=== PATIENT | female | born 1990 | race Caucasian/White ===

== ENCOUNTER 2025-07-12 15:25 | Outpatient (AMB) | payer OTHER, SELFPAY ==
--- NOTE | 2025-07-12 15:45 | MHC.OFFVIS ---
Intake Visit Reasons: 2 month facial pain Allergies amoxicillin Allergy (Unknown, Verified 07/05/25 08:20) Unknown HPI Comments Details: This is a 34-year-old woman with a history of kidney stones, who comes in with one year history of tingling paresthesia in the right cheek area with some facial pain and right frontal headaches and sometimes trouble opening the right eye. The right eyeball feels weird when it is moved.? Her symptoms increase in the summer.?The numb tingling is less often. Sometimes, she'll get a right suboccipital pain and pain in the right ear.? She occasionally reports twitching in the right cheek.? Many years ago,? she had a root canal done in the right upper and lower jaw.? She denies any facial or head trauma. Getting daily headaches. [facility] Medical History (Updated 07/12/25 @ 15:52 by Antonio Rascon MD) Facial pain Sinusitis Review of Systems Const Details: Sleep:? Difficulty getting to sleepdenies.? Difficulty maintaining sleepdenies?.? Urge to move legsdenies.? Teeth grindingdenies.? Shouting or Kicking during sleepdenies.? Abnormal behavior during sleepdenies.? Excessive sleepdenies.? Snoringdenies.? Daytime sleepinessdenies. ???General/Constitutional:? Change in appetitedenies.? Chillsdenies.? Fatiguedenies.? Feverdenies.? Weight gaindenies.? Weight lossdenies. ???Ophthalmologic:? Blurred visiondenies.? Diminished visual acuitydenies. ???ENT:? Stuffinessdenies.? Decreased hearingdenies.? Dry mouthdenies.? Ear painadmits.? Nosebleeddenies.? Ringing in the earsdenies.? Sinus paindenies.? Sore throatdenies.? Swollen glandsdenies. ???Endocrine:? Cold intolerancedenies.? Excessive thirstdenies.? Frequent urinationdenies.? Heat intolerancedenies. ???Respiratory:? Shortness of breathdenies.? Chest paindenies.? Coughdenies. ???Breast:? Breast lumpdenies.? Nipple dischargedenies. ???Cardiovascular:? Chest pain at restdenies.? Chest pain with exertiondenies.? Claudicationdenies.? Dizzinessdenies.? Fluid accumulation in the legsdenies.? Irregular heartbeatdenies.? Palpitationsdenies. ???Gastrointestinal:? Abdominal paindenies.? Constipationdenies.? Diarrheadenies.? Difficulty swallowingdenies.? Heartburnadmits.? Nauseadenies.? Rectal bleedingdenies. ???Hematology:? Easy bruisingdenies.? Prolonged bleedingdenies. ???Genitourinary:? Frequent urinationdenies.? Urgencydenies.? Incontinencedenies.? Erectile Dysfunctiondenies. ???Musculoskeletal:? Neck paindenies.? Back paindenies.? Muscle achesdenies.? Painful jointsdenies.? Sciaticadenies.? Weaknessdenies. ???Podiatric:? Difficulty walkingdenies.? Foot numbnessdenies. ???Neurologic:? Difficulty swallowingdenies.? Balance difficultydenies.? Coordinationnormal.? Difficulty speakingdenies.? Dizzinessdenies.? Faintingdenies.? Gait abnormalitydenies.? Headacheadmits.? Loss of strengthdenies.? Loss of use of extremitydenies.? Low back paindenies.? Memory lossdenies.? Seizuresdenies.? Ticsdenies.? Tingling/Numbnessface.? Transient loss of visiondenies.? Tremordenies. ???Psychiatric:? Anxietydenies.? Auditory/visual hallucinationsdenies.? Delusionsdenies.? Depressed mooddenies.? Stressorsdenies.? Substance abusedenies.? Suicidal thoughtsdenies. Physical Exam Neuro Other: Neurological: Abnormal neurological findings:??slight developmental facial asymmetry and deviated bridge of the nose.?Mental Status:??alert and oriented X 3,?Normal attention, orientation, memory and affect.?Cranial Nerves:??Pupils are equal, round and reactive to light. Fundoscopy shows normal disc bilaterally. External occular muscles are intact. Visual jimenez are full, no ptosis. Face is symmetrical, no facial weakness or droop. Facial sensations are normal. Tongue protrudes in midline. Palate elevates symmetrically. Shoulder shrugging is normal..?Motor Examination:??Normal muscle tone, bulk and strength,?No atrophy or fasciculations,?No drift of the extended upper extremities,?Deep tendon reflexes are 2+?,?Plantars are flexor?.?Motor Strength:?Proximal Muscles (out of 5):5Distal Muscles (out of 5):5Neck Flexors (out of 5):5Neck Extensors (out of 5):5Deltoid (out of 5):5Biceps (out of 5):5Triceps (out of 5):5Serratus Anterior (out of 5):5Wrist Extensors (out of 5):5APB (out of 5):5Finger Spread (out of 5):5Ileopsoas (out of 5):5Quadriceps (out of 5):5Hamstrings (out of 5):5Tibialis Anterior (out of 5):5Peronei (out of 5):5EDB (out of 5):5Gastrocnemius (out of 5):5Straight Leg Raising:??90 degrees.?Sensory Exam:??Normal light touch, temperature, pinprick, vibration and joint-position sensations?,?Rhomberg sign is absent.?Coordination:??no ataxia,?no titubation,?ayjynp-dt-puuy, kkxt-fbxm-axtl test and rapid alternating movements were normal.?Gait Exam:??Within normal limits.?Cerebellar Signs:??Rwbysq-vo-rond and ocsm-jj-oyqb is normal,?no dysdiadochokinesia?.?Extrapyramidal System:??No tremor, rigidity with normal facial expressions,?No bradykinesia, no bradyphrenia. Normal arm swing and posture. No propulsion or retropulsion.?Speech:??Normal,?no dysphasia or dysarthria..? Mini Mental Status Exam: Level of Consciousness:??Alert.?Orientation:??Knows correct year, month, date, day and season,?Knows correct city, county and state. Knows correct location and floor.?Registration:??Able to register 3 objects.?Attention:??Serial 7's performed accurately.?Recall:??Able to recall 3 out of 3 objects.?Language:??Normal spontaneous speech, fluency, repetition,naming, comprehension, reading and writing.?Total Score:??30/30.? General Examination: GENERAL APPEARANCE:??normal,?in no acute distress.?HEAD:??normocephalic,?atraumatic.?EYES:??sclera non-icteric,?conjunctiva clear.?EARS:??auditory canal clear,?tympanic membrane intact, clear.?NOSE:??no lesions.?ORAL CAVITY:??gums normal,?mucosa moist,?no lesions.?THROAT:??clear.?NECK/THYROID:??no cervical lymphadenopathy,?thyroid normal,?neck supple, full range of motion,?no carotid bruit.?SKIN:??no rashes,?no significant birthmarks.?HEART:??S1, S2 normal,?no murmurs.?LUNGS:??clear anteriorly and posteriorly.?CHEST:??no gross rib deformity,?clear to auscultation.?BACK:??normal exam of spine.?EXTREMITIES:??no edema.?PERIPHERAL PULSES:??normal.?PSYCH:??alert, oriented,?cognitive function intact,?cooperative with exam.? 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
--- OUTSIDE RECORDS SUMMARY | 2025-07-12 16:18 | XMS_ITS ---
Author Name [facility] Organization Unknown Care Team Organization Name Specialty Phone Email Start Date End Da zahraa [facility]ae[facility] 09/30/20222023
--- OUTSIDE RECORDS SUMMARY | 2025-07-12 16:18 | XMS_ITS | Clinical Summary ---
Author Organization [facility] Address [address] [place] [address] Phone Care Team Providers Care Drying Unit Felting Machine Operator Name Role Phone Donald Toth MD Primary Care Provider [phone] Allergies Active Allergy Reactions Criticality Noted Date Comments Amoxicillin 05/11/2025 Penicillins 05/11/2025 Medications mometasone (ELOCON) 0.1 % cream APPLY TO AFFECTED AREA TWICE A DAY ON THE FACE FOR 7 DAYS 45 g 1 4 Active camphor-methyl salicyl-menthoL (Salonpas) 3.1 %-10 %-6 % (large) adhesive patch,medicated Indications:Chr onic left shoulder pain Apply 1 patch topically 1 (one) time each day if needed (pain). Remove at bedtime. 30 patch 5 5 Active cetirizine (ZyrTEC) 10 mg tablet TAKE 1 TABLET BY MOUTH 1 TIME EACH DAY. 30 tablet 2 5 Active Encounters Date Type Department Care Team Description 06/07/2025 Lab Requisition [facility] - Main Lab [address] [place] [address] Fernando Burnette MD Calculus of kidney 05/11/2025 2:30 PM EDT Consult Orthopedic Surgery - [employer] [address] [place] [address] Yamilet Rivero PA Chronic left shoulder pain 04/28/2025 2:38 PM EDT - 04/28/2025 11:59 PM EDT Hospital Encounter [facility] Ultrasound [address] [place] [address] Calculus of kidney Discharge Disposition: Home or Self Care 04/13/2025 10:59 AM EDT - 04/13/2025 11:59 PM EDT Hospital Encounter [facility] Xray [address] [place] [id number] Chronic left shoulder pain Discharge Disposition: Home or Self Care 04/13/2025 10:30 AM EDT Office Visit Internal Medicine - [employer] [address] [place] [phone] Joaquín Arshad NP Right facial numbness (Primary Dx); Mold suspected exposure; Chronic left shoulder pain from Last 3 Months Surgical History Surgery Date Site/Laterality Comments OTHER SURGICAL HISTORY PROCEDURE: DENIES PREVIOUS SURGERY Medical History Medical History Date Comments GERD (gastroesophageal reflu x disease) 01/21/2018 DX:GERD (gastroesophageal re flux disease) Psoriasis 01/21/2018 DX:Psoriasis Family history of breast cancer 09/10/2016 DX:Family history of breast cancer; COMMENT: Overview: Mother breast cancer at 38- in remission. Paternal Grandmother Hx of abnormal cervical Pap smear 01/26/2015 DX:Hx of abnormal cervical Pap smear; COMMENT: Overview: 06/30/2017: negative for squamous intraepithelial malignancy. Negative HPV Pt had a Pap done 01/15/2015. Negative for squamous intraepithelial lesion and malignancy- abundant acute inflammatory cells are present. Scant cellularity. OncoFISH test result to follow. HPV: Positive HPV 16: negative HPV 18/45: Negative Negative 3q gain W* History of vitamin D deficiency 10/25/2014 DX:History of vitamin D deficiency History of nephrolithiasis DX:Hi story of nephrolithiasis Frequent urination at night 10/13/2018 DX:F requent urination at night Chronic constipation 01/18/2019 DX:Chronic constipation Family History Medical History Relation Name Comments Breast cancer Mother at age 38, in remission Other: ovarian cyst Mother Breast cancer Paternal Grandmother Relation Name Status Comments Father Alive Mother Alive Paternal Grandmother Social History Tobacco Use Types Packs/Day Years Used Date Smoking Tobacco: Never Smokeless Tobacco: Never Alcohol Use Standard Drinks/Week Comments No 0 (1 standard drink = 0.6 oz pur e alcohol) Housing Instability Answer Date Recorde d Are you worried that in the next 2 months you may not have stable housing? No 04/12/2025 Food Access & Nutrition Answer Date Rec orded Do you have access to a vari ety of food including fruits and vegetables? Yes 04/12/2025 Access to Healthcare Answer Date Record ed Within the last 3 months, ho w many times did you visit the emergency department for your medical care? 0 04/12/2025 Health Literacy Answer Date Recorded How often do you need to hav e someone help you when you read instructions, pamphlets, or other written material from your doctor or pharmacy? Never 04/12/2025 Caregiver: How often do you need to have someone help you when you read instructions, pamphlets, or other written material from your doctor or pharmacy? Not on file 04/12/2025 Financial Risk Answer Date Recorded How hard is it for you to pa y for the very basics like food, housing, medical care, and air conditioning / heating? Not very hard 04/12/2025 Transportation Answer Date Recorded Has the lack of transportati on kept you from meetings, work, or from getting things needed for daily living? No Has the lack of transportati on kept you from medical appointments or from getting medications? No 04/12/2025 Social Isolation Answer Date Recorded How often do you feel lonely or isolated from th ose around you? Never 04/12/2025 Food Risk Answer Date Recorded Within the past 12 months we worried whether our food would run out before we got money to buy more. Never true 04/12/2025 Within the past 12 months th e food we bought just didn't last and we didn't have money to get more. Never true 04/12/2025 Dependent Care Answer Date Recorded Do you need help finding or paying for care for your loved ones. For example, child abuse worker or elderly care for an older adult? No 04/12/2025 Education Answer Date Recorded Do you think completing more education or training, like finishing a GED, going to college, or learning a trade, would be helpful for you? No 04/12/2025 Employment and Income Answer Date Recor ded During the last four weeks, have you been actively looking for work? Yes 04/12/2025 Living Situation Answer Date Recorded What is your living situation? 0 04/12/2025 Comments Unknown Sex and Gender Information Value Date Recorded Sex Assigned at Not on file Legal Sex Female 8:34 PM EST Gender Identity Not on file Sexual Orientation Not on file Obstetrics History Last Filed Vital Signs Vital Sign Reading Time Taken Comments Blood Pressure 118/78 04/13/2025 10:21 AM EDT Pulse 79 04/13/2025 10:21 AM EDT Temperature 36.7 C (98 F) 04/13/2025 10:21 AM EDT Respiratory Rate - - Oxygen Saturation 99% 04/13/2025 10:21 AM EDT Inhaled Oxygen Concentration - - Weight 62.7 kg (138 lb 3.2 oz) 04/13/2025 10:21 AM EDT Height 165.1 cm (5' 5 ) 05/11/2025 2:27 PM EDT Body Mass Index 23 05/25/2024 3:26 PM EDT Plan of Treatment Upcoming Encounters Date Type Department Care Team (Late st Contact Info) Description 10/10/2025 11:15 AM EST Office Visit Internal Medicine - [employer] [address] [address] [place] [address] Joaquín Arshad, GABY [address] [facility] [address] [place] [address] Health Maintenance Due Date Last Done Comments Hepatitis A Vaccines (2 of 2 - 2-dose series) 08/27/2011 02/25/2011 Cervical Cancer Screening: Pap Smear 2013 HIV Screening 11/01/2022 Hepatitis C Screening 11/01/2022 COVID-19 Vaccine ( season) 2024 07/12/2021 Influenza Vaccine (#1) 2025 , 10/25/2014, 09/08/2013 Social Influencers of Health Screening 04/12/2026 04/12/2025 DTaP,Tdap,and Td Vaccines (8 - Td or Tdap) 03/12/2033 03/12/2023, 03/27/2005, 10/24/1996, Additional history exists HIB Vaccines Completed 10/24/1996, 12/1995, 04/29/1994, Additional history exists IPV Vaccines Completed 10/24/1996, 12/1995, 04/29/1994, Additional history exists MMR Vaccines Completed 10/24/1996, 01/31/1994 Hepatitis B Vaccines Completed 03/14/2002, 12/10/2001, 11/10/2001, Additional history exists Meningococcal ACWY Vaccine Aged Out 03/07/2009 N o longer eligible based on patient's age to complete this topic HPV Vaccines Completed 11/08/2010, 08/23, 03/07/2009 Depression Screening Completed 04/12/2025 Meningococcal B Vaccine Aged Out No l onger eligible based on patient's age to complete this topic Pneumococcal Vaccine: Pediatrics (0 to 5 Years) and At-Risk Patients (6 to 49 Years) Aged Out No longer eligible based on patient's age to complete this topic RSV Immunization Patients Under 20 months Aged Out No longer eligible based on patient's age to complete this topic Varicella Vaccines Aged Out No longer eligible based on patient's age to complete this topic Procedures Procedure Name Priority Date/Time Associated Diagnosis Comments PARATHYROID HORMONE INTACT Routine 06/07/2025 2:29 PM EDT [facility] US RETROPERITONEAL COMPLETE Routine 04/28/2025 2:56 PM EDT [facility] XR SHOULDER 2+ VIEWS LEFT Routine 04/13/2025 11:06 AM EDT Chronic left shoulder pain ALLERGEN, CLADOSPORIUM HERBARUM IGE Routine 04/13/2025 10:45 AM EDT Mold suspected exposure ALLERGEN MICROORGANISM, ALTERNARIA ALTERNATA IGE Routine 04/13/2025 10:45 AM EDT Mold suspected exposure ALLERGEN ASPERGILLUS FUMIGATUS IGE Routine 04/13/2025 10:45 AM EDT Mold suspected exposure from Last 3 Months Results * (ABNORMAL) Parathyroid hormone intact (06/07/2025 2:29 PM EDT) PTH 126.0(H) 18.5 - 88.0 pcg/mL LAB CHEMISTRY METHOD 06/07/2025 6:53 PM EDT [facility] Blood Venous blood specimen / Unknown 06/07/2025 2:29 PM EDT 06/07/2025 6:21 PM EDT us Fernando Burnette MD LAB BLOOD ORDERABLES Final Result [facility] [address] [place] [address], [place] [phone] * US Retroperitoneal Complete (04/28/2025 2:56 PM EDT) Anatomical Region Laterality Modality Body Ultrasound 04/28/2025 3:30 PM EDT Impressions 04/28/2025 3:32 PM EDT Multiple small echogenic foci in the right kidney suggesting nonobstructing calculi. No hydronephrosis. -------- FINAL REPORT -------- Dictated By: Benjy Vann Dictated Date: 04/28/2025 15:30 ET Assigned Physician: Benjy Vann Reviewed and Electronically Signed By: Benjy Vann Signed Date: 04/28/2025 15:32 ET Workstation ID: [id number] Transcribed By: Self Edit Transcribed Date: 04/28/2025 15:30 ET Narrative 04/28/2025 3:32 PM EDT PROCEDURE: Renal ultrasound. HISTORY: CALCULUS OF KIDNEY. TECHNIQUE: Grayscale, color Doppler, and spectral Doppler ultrasound of the kidneys. COMPARISON: CT 02/09/2019. FINDINGS: The right kidney measures 10.3 cm in length. The left kidney measures 10.3 cm in length. No hydronephrosis. There are multiple small echogenic foci in the right kidney suggesting nonobstructing calculi. Limited views of the urinary bladder are unremarkable. Both ureteral jets were visualized. Procedure Note Benjy Vann MD - 04/28/2025 PROCEDURE: Renal ultrasound. HISTORY: CALCULUS OF KIDNEY. TECHNIQUE: Grayscale, color Doppler, and spectral Doppler ultrasound ofthe kidneys. COMPARISON: CT 02/09/2019. FINDINGS: The right kidney measures 10.3 cm in length. The left kidney measures 10.3 cm in length. No hydronephrosis. There are multiple small echogenic foci in the right kidney suggestingnonobstructing calculi. Limited views of the urinary bladder are unremarkable. Both ureteral jetswere visualized. IMPRESSION: Multiple small echogenic foci in the right kidney suggestingnonobstructing calculi. No hydronephrosis. -------- FINAL REPORT -------- Dictated By: Benjy Vann Dictated Date: 04/28/2025 15:30 ET Assigned Physician: Benjy Vann Reviewed and Electronically Signed By: Benjy Vann Signed Date: 04/28/2025 15:32 ET Workstation ID: [id number] Transcribed By: Self Edit Transcribed Date: 04/28/2025 15:30 ET us Fernando Burnette MD IMG US PROCEDURES Fin al Result * XR Shoulder 2+ Views Left (04/13/2025 11:06 AM EDT) Anatomical Region Laterality Modality Upper Extremities, Shoulder Left Radi ographic Imaging 04/14/2025 10:4 1 AM EDT Impressions 04/14/2025 10:42 AM EDT No etiology for shoulder pain demonstrated -------- FINAL REPORT -------- Dictated By: Jacinto Frye Dictated Date: 04/14/2025 10:41 ET Assigned Physician: Jacinto Frye Reviewed and Electronically Signed By: Jacinto Frye Signed Date: 04/14/2025 10:42 ET Workstation ID: [id number] Transcribed By: Self Edit Transcribed Date: 04/14/2025 10:41 ET Narrative 04/14/2025 10:42 AM EDT EXAMINATION: LEFT SHOULDER CLINICAL INFORMATION: Pain. Fall COMPARISON: None. TECHNIQUE: 3 views left shoulder FINDINGS: No fracture, subluxation or focal lesion. The articular surfaces are smooth. There is no abnormal soft tissue calcification. There is no suspicious abnormality in the visualized portions of the chest Procedure Note Jacinto Frye MD - 04/14/2025 EXAMINATION: LEFT SHOULDER CLINICAL INFORMATION: Pain. Fall COMPARISON: None. TECHNIQUE: 3 views left shoulder FINDINGS: No fracture, subluxation or focal lesion. The articular surfaces are smooth. There is no abnormal soft tissuecalcification. There is no suspicious abnormality in the visualizedportions of the chest IMPRESSION: No etiology for shoulder pain demonstrated -------- FINAL REPORT -------- Dictated By: Jacinto Frye Dictated Date: 04/14/2025 10:41 ET Assigned Physician: Jacinto Frye Reviewed and Electronically Signed By: Jacinto Frye Signed Date: 04/14/2025 10:42 ET Workstation ID: [id number] Transcribed By: Self Edit Transcribed Date: 04/14/2025 10:41 ET Joaquín Arshad NP IMG XR PROCEDURES Final Result * Allergen microorganism, alternaria alternata IgE (04/13/2025 10:45 AM EDT) Alternaria alternata, IgE <0.10 <0.10 kU/L 04/19/2025 5:[address] [facility] Alternaria alternata Class CLASS 0 04/19/2025 5:[address] [facility] Comment: Test performed at [facility], [address], [place] [address] Kelly Perkins MD, PhD - Well Testing Operator Blood Venous blood specimen / Unknown Venipuncture / Unknown 04/13/2025 10:45 AM EDT 04/13/2025 10:45 AM EDT Joaquín Arshad NP LAB BLOOD ORDERABLES Final Resul t [facility] [address] [place], [place] [id number] * Cladosporium herbarum IgE (04/13/2025 10:45 AM EDT) Cladosporium herbarum, IgE <0.10 <0.10 kU/L 04/19/2025 5:33 AM EDT [facility] Cladosporium herbarum Class CLASS 0 04/19/2025 5:33 AM EDT [facility] Comment: Test performed at [facility], [address] , [place] [address] Kelly Perkins MD, PhD - Well Testing Operator Blood Venous blood specimen / Unknown Venipuncture / Unknown 04/13/2025 10:45 AM EDT 04/13/2025 10:45 AM EDT us Omar Jeancarlos MEDICAL CODER LAB BLOOD ORDERABLES Final Resul t Performing Organization Address [facility]/ZIP Co de Phone Number [facility] [address] [place], [place] [id number] * Allergen aspergillus fumigatus IgE (04/13/2025 10:45 AM EDT) Aspergillus fumigatus, IgE <0.10 <0.10 kU/L 04/19/2025 5:33 AM EDT [facility] Aspergillus fumigatus Class CLASS 0 04/19/2025 5:33 AM EDT [facility] Comment: Test performed at [facility], [address] [place] [address] Kelly Perkins MD, PhD - Well Testing Operator Blood Venous blood specimen / Unknown Venipuncture / Unknown 04/13/2025 10:45 AM EDT 04/13/2025 10:45 AM EDT Joaquín Arshad MEDICAL CODER LAB BLOOD ORDERABLES Final Resul t [facility] [address] [place], [place] [phone] from Last 3 [place] [phone] Care Teams Drying Unit Felting Machine Operator Relationship Specialty Start Date End Date Donald Toth MD [address] [facility] [address] [place] [address] PCP - General Internal Medicine 10/13/18
--- OUTSIDE RECORDS SUMMARY | 2025-07-12 16:18 | XMS_ITS | Clinical Summary ---
Author Organization [facility] Address [address] [place] [address] Care Team Providers Care Line Construction Supervisor Name Role Phone Ambreen Pugh PA-C Primary Care Provider [phone] Source Comments PLEASE NOTE, if this patient is a minor, it may be UNLAWFUL to discuss sensitive information that is contained in these records (such as FAMILY PLANNING, MENTAL HEALTH or SUBSTANCE ABUSE) with the minor patient's parent or other person without the patient's specific authorization.[facility] Allergies No known active allergies Medications omeprazole (PRILOSEC) [address] Dixon ns:Gastroesophag eal reflux disease without esophagitis Take 1 Cap by mouth every morning before breakfast. Do not crush or chew. 30 Cap 2 09/10/2016 Active Active Problems Problem Noted Date Diagnosed Date Right kidney stone 04/27/2018 Overview (04/27/2018): Went to [facility] on 04/24/2018; CT showed 3 mm stone ureteral calculus by CT Family history of breast cancer 09/10/2016 Overview (09/10/2016): Mother breast cancer at 38- in remission. Paternal Grandmother Hx of abnormal cervical Pap smear 01/26/2015 Overview (07/09/2017): 06/30/2017: negative for squamous intraepithelial malignancy. Negative HPV Pt had a Pap done 01/15/2015. Negative for squamous intraepithelial lesion and malignancy- abundant acute inflammatory cells are present. Scant cellularity. OncoFISH test result to follow. HPV: Positive HPV 16: negative HPV 18/45: Negative Negative 3q gain Will repeat PAP in one year Psoriasis 10/25/2014 Immune to hepatitis B 10/25/2014 Overview (10/25/2014): 03/07/2009 H/O gastritis 10/25/2014 GERD (gastroesophageal reflux disease) 4 H/O vitamin D deficiency 10/25/2014 Constipation, acute 04/04/2014 Routine general medical exam ination at a health care facility 09/09/2013 Resolved Problems Problem Noted Date Diagnosed Date Resolved Date Bacterial vaginosis 01/16/2015 07/12/20 21 Immunizations Immunization Administration Dates Next Due EJtT-Dba-QGP (Pentacel) 10/24/1996,04/29,06/24/1993,04/17,01/04/1993 HEP B, PED/ADOL (RJWMGPV-U-TELW/RECOMBIVAX-PEDS) 03/14/2002,12/10/2001,11/10/2001,11/21,1992 HPV, QUADRIVALENT 11/08/2010,09/10/2009,03/07/20 09 Hep A, adult 02/25/2011 Hib (PRP-T) 01/31/1994, 3,04/17/1993,01/04 INFLUENZA, SEASONAL, INJECTABLE 10/25/2014,09/08 IPV (IPOL) 10/24/1996, 4,04/17/1993,01/04 MENINGOCOCCAL MPSV4 03/07/2009 MMR (MMR II/Priorix) 10/24/1996,01/31/1994 PPD 09/09/2013 Td (adult),2 Lf tetanus toxo id (TDVAX), preservative free 03/27/2005 Family History Medical History Relation Name Comments Gastrointestinal Problems Maternal Grandmother liver problem Cancer Mother breast- remissi on Cancer Paternal Grandmother Breast Cancer Relation Name Status Comments Brother Alive Father Other Maternal Grandmother Mother Alive Paternal Grandmother Sister Alive Social History Tobacco Use Types Packs/Day Years Used Date Smoking Tobacco: Never Smokeless Tobacco: Never Alcohol Use Standard Drinks/Week Comments No 0 (1 standard drink = 0.6 oz pur e alcohol) Social Connections Answer Date Recorded Social Connections and Isolation 0 07/16/2019 Financial Resource Strain Answer Date R ecorded Financial Resource Strain 0 2018 Stress Answer Date Recorded Stress 0 07/16/2019 Physical Activity Answer Date Recorded Physical Activity 0 07/16/2019 Food Insecurity Answer Date Recorded Food 0 07/16/2019 Transportation Needs Answer Date Record ed Transportation 0 07/16/2019 Housing Stability Answer Date Recorded Housing 0 07/16/2019 Safety and Environment Answer Date Td rded Safety 0 07/16/2019 Utilities Answer Date Recorded Utilities 0 07/16/2019 Employment Answer Date Recorded Employment 0 07/16/2019 Comments No Sex and Gender Information Value Date Recorded Sex Assigned at Female 10/08/2017 7:11 AM PST Legal Sex Female 11:36 AM PDT Gender Identity Female 10/08/2017 7:11 AM PST Sexual Orientation Straight 10/08/2017 7: 11 AM PST 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 Not on file Not on file Not on chencho e Last Filed Vital Signs Vital Sign Reading Time Taken Comments Blood Pressure 112/74 10/08/2017 10:12 AM EST Pulse 74 10/08/2017 10:12 AM EST Temperature 37 C (98.6 F) 10/08/2017 10:12 AM EST Respiratory Rate 20 10/08/2017 10:12 AM EST Oxygen Saturation - - Inhaled Oxygen Concentration - - Weight 57.2 kg (126 lb) 10/08/2017 10:12 AM EST Height 165.1 cm (5' 5 ) 10/08/2017 10:12 AM EST Body Mass Index 20.97 10/08/2017 10:12 AM EST Plan of Treatment Not on file Insurance [facility] Member Subscriber Plan / Payer (Ef fective 2013-Present) Name:Caty Angela Relation to Subscriber:Self Name:Caty Angela Payer ID:[id number] Group ID:[id number] Type:Medicaid Address: [facility] [address] [place] [address] [facility] Care Teams Line Construction Supervisor Relationship Specialty Start Date End Date Ambreen Pugh PA-C [address] [place] [address] PCP - General 10/13/18
== END 2025-07-12 15:56 | disposition home or self-care (01) ==
LOC: HO.HSM 15:26
PROVIDERS: PCP Internal Medicine; Referring Provider Internal Medicine; Visit Provider Psychiatry & Neurology Neurology
DX: R51.9 Headache, unspecified (principal); G50.9 Disorder of trigeminal nerve, unspecified
CPT/HCPCS: 99214

== ENCOUNTER → 2025-07-12 15:25 | Outpatient (BNVA) | payer OTHER, SELFPAY | PROVIDERS: PCP Internal Medicine; Referring Provider Internal Medicine; Visit Provider Psychiatry & Neurology Neurology | DX: R51.9 Headache, unspecified (principal); G50.9 Disorder of trigeminal nerve, unspecified | CPT/HCPCS: 99212 ==

== ENCOUNTER 2025-11-14 15:22 | Outpatient (AMB) | payer OTHER, SELFPAY ==
--- NOTE | 2025-11-14 15:44 | A.OFFVIS_ITS ---
Intake Visit Reasons: follow up Allergies amoxicillin Allergy (Unknown, Verified 07/05/25 08:20) Unknown Medication List - Last Reconciled 11/14/25 by Antonio Rascon MD cetirizine 10 mg PO DAILY cholecalciferol (vitamin D3) 50 mcg PO DAILY HPI Comments Details: Her headaches are less frequent and shorter in duration. Tingling has subsided. She has a one year history of tingling paresthesia in the right cheek area with some facial pain and right frontal headaches and sometimes trouble opening the right eye. The right eyeball feels weird when it is moved.? Her symptoms increase in the summer.?The numb tingling is less often. Sometimes, she'll get a right suboccipital pain and pain in the right ear.? She occasionally reports twitching in the right cheek.? Many years ago,? she had a root canal done in the right upper and lower jaw.? She denies any facial or head trauma. Getting daily headaches.H/O kidney stones. [facility] Medical History (Updated 07/12/25 @ 15:52 by Antonio Rascon MD) Facial pain Sinusitis Review of Systems Const Details: Sleep:? Difficulty getting to sleepdenies.? Difficulty maintaining sleepdenies?.? Urge to move legsdenies.? Teeth grindingdenies.? Shouting or Kicking during sleep denies.? Abnormal behavior during sleepdenies.? Excessive sleepdenies.? Snoring denies.? Daytime sleepinessdenies. ???General/Constitutional:? Change in appetitedenies.? Chillsdenies.? Fatiguedenies.? Feverdenies.? Weight gaindenies.? Weight lossdenies. ???Ophthalmologic:? Blurred visiondenies.? Diminished visual acuitydenies. ???ENT:? Stuffinessdenies.? Decreased hearingdenies.? Dry mouthdenies.? Ear painadmits.? Nosebleeddenies.? Ringing in the earsdenies.? Sinus paindenies.? Sore throat denies.? Swollen glandsdenies. ???Endocrine:? Cold intolerancedenies.? Excessive thirstdenies.? Frequent urinationdenies.? Heat intolerancedenies. ???Respiratory:? Shortness of breathdenies.? Chest paindenies.? Coughdenies. ???Breast:? Breast lumpdenies.? Nipple dischargedenies. ???Cardiovascular:? Chest pain at restdenies.? Chest pain with exertiondenies.? Claudicationdenies .? Dizzinessdenies.? Fluid accumulation in the legsdenies.? Irregular heartbeat denies.? Palpitationsdenies. ???Gastrointestinal:? Abdominal paindenies.? Constipationdenies.? Diarrheadenies.? Difficulty swallowingdenies.? Heartburnadmits.? Nauseadenies.? Rectal bleedingdenies. ???Hematology:? Easy bruisingdenies.? Prolonged bleedingdenies. ???Genitourinary:? Frequent urinationdenies.? Urgencydenies.? Incontinencedenies.? Erectile Dysfunctiondenies. ???Musculoskeletal:? Neck paindenies.? Back paindenies.? Muscle achesdenies.? Painful jointsdenies.? Sciaticadenies.? Weaknessdenies. ???Podiatric:? Difficulty walkingdenies.? Foot numbnessdenies. ???Neurologic:? Difficulty swallowingdenies.? Balance difficultydenies.? Coordinationnormal.? Difficulty speakingdenies.? Dizzinessdenies.? Faintingdenies.? Gait abnormality denies.? Headacheadmits.? Loss of strengthdenies.? Loss of use of extremity denies.? Low back paindenies.? Memory lossdenies.? Seizuresdenies.? Ticsdenies.? Tingling/Numbnessface.? Transient loss of visiondenies.? Tremordenies. ???Psychiatric:? Anxietydenies.? Auditory/visual hallucinationsdenies.? Delusionsdenies.? Depressed mooddenies.? Stressorsdenies.? Substance abusedenies.? Suicidal th oughtsdenies. Physical Exam Neuro Other: Neurological: Abnormal neurological findings:??slight developmental facial asymmetry and deviated bridge of the nose.?Mental Status:??alert and oriented X 3,?Normal attention, orientation, memory and affect.?Cranial Nerves:??Pupils are equal, round and reactive to light. Fundoscopy shows normal disc bilaterally. External occular muscles are intact. Visual jimenez are full, no ptosis. Face is symmetri adrianne, no facial weakness or droop. Facial sensations are normal. Tongue protrudes in midline. Palate elevates symmetrically. Shoulder shrugging is normal..?Motor Examination:??Normal muscle tone, bulk and strength,?No atrophy or fasciculations,?No drift of the extended upper extremities,?Deep tendon reflexes are 2+?,?Plantars are flexor?.?Motor Strength:?Proximal Muscles (out of 5):5 Distal Muscles (out of 5):5Neck Flexors (out of 5):5Neck Extensors (out of 5):5 Deltoid (out of 5):5Biceps (out of 5):5Triceps (out of 5):5Serratus Anterior (out of 5):5Wrist Extensors (out of 5):5APB (out of 5):5Finger Spread (out of 5):5Ileopsoas (out of 5):5Quadriceps (out of 5):5Hamstrings (out of 5):5Tibialis Anterior (out of 5):5Peronei (out of 5):5EDB (out of 5):5Gastrocnemius (out of 5):5Straight Leg Raising:??90 degrees.?Sensory Exam:??Normal light touch, temperature, pinprick, vibration and joint-position sensations?,?Rhomberg sign is absent.?Coordination:??no ataxia,?no titubation,?cmcjhl-jf-bdaw, dhzi-ybsw-bwkr test and rapid alternating movements were normal.?Gait Exam:??Within normal limits.?Cerebellar Signs:??Nssmkd-px-wosm and tpph-ib-zehr is normal,?no dysdiadochokinesia?.?Extrapyramidal System:??No tremor, rigidity with normal facial expressions,?No bradykinesia, no bradyphrenia. Normal arm swing and posture. No propulsion or retropulsion.?Speech:??Normal,?no dysphasia or dysarthria..? Mini Mental Status Exam: Level of Consciousness:??Alert.?Orientation:??Knows correct year, month, date, day and season,?Knows correct city, county and state. Knows correct location and floor.?Registration:??Able to register 3 objects.?Attention:??Serial 7's performed accurately.?Recall:??Able to recall 3 out of 3 objects.?Language:??Normal spontaneous speech, fluency, repetition,naming, comprehension, reading and writing.?Total Score:??30/30.? General Examination: GENERAL APPEARANCE:??normal,?in no acute distress.?HEAD:??normocephalic,?atraumatic.?EYES:??sclera non- icteric,?conjunctiva clear.?EARS:??auditory canal clear,?tympanic membrane intact, clear.?NOSE:??no lesions.?ORAL CAVITY:??gums normal,?mucosa moist,?no lesions.?THROAT:??clear.?NECK/THYROID:??no cervical lymphadenopathy,?thyroid normal,?neck supple, full range of motion,?no carotid bruit.?SKIN:??no rashes,? no significant birthmarks.?HEART:??S1, S2 normal,?no murmurs.?LUNGS:??clear anteriorly and posteriorly.?CHEST:??no gross rib deformity,?clear to auscultation.?BACK:??normal exam of spine.?EXTREMITIES:??no edema.?PERIPHERAL PULSES:??normal.?PSYCH:??alert, oriented,?cognitive function intact,?cooperative with exam.? 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 Low Vit D. 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
--- OUTSIDE RECORDS SUMMARY | 2025-11-14 16:31 | XMS_ITS | Encounter Summary ---
Author Organization [facility] Address [address] [place] [address] Care Team Providers Care Station Helper Name Role Phone Donald Toth MD Primary Care Provider [phone] Encounter Details Date Type Department Care Team (Late st Contact Info) Description 06/07/2025 Lab Requisition [facility] - Main Lab [address] [facility] [place] [phone] Fernando Burnette MD [address] [place] [address] Calculus of kidney Social History Tobacco Use Types Packs/Day Years [...] for your loved ones. For example, child nutrition assistant or elderly care for an older adult? [...] Date Recorded What is your living situation? Unrecognized valu e 04/12/2025 Comments Unknown Sex and Gender Information Value Date Recorded Sex Assigned at Not on file Legal Sex Female 8:34 PM EST Gender Identity Not on file Sexual Orientation Not on file documented as of this encounter Plan of Treatment Upcoming Encounters Date Type Department Care Team (Late st Contact Info) Description 03/16/2026 10:00 AM EDT Office Visit Endocrinology - [place] [address] [place] [address] Lizzette Moe MD [address] [place] [address] 10/24/2026 9:00 AM EST Office Visit Internal Medicine - [place] [address] [address] Donald Toth MD [address] [address] documented as of this encounter Procedures Procedure Name Priority Date/Time Associated Diagnosis Comments PARATHYROID HORMONE INTACT Routine 06/07/2025 2:29 PM EDT Calculus of kidney documented in this encounter Results * (ABNORMAL) Parathyroid hormone intact (06/07/2025 2:29 PM EDT) PTH 126.0(H) 18.5 - 88.0 pcg/mL LAB CHEMISTRY METHOD 06/07/2025 6:53 PM EDT [facility] Blood Venous blood specimen / Unknown 06/07/2025 2:29 PM EDT 06/07/2025 6:21 PM EDT us Fernando Burnette MD LAB BLOOD ORDERABLES Final Result [facility] [address] [place] [address], documented in this encounter Visit Diagnoses Diagnosis Calculus of kidney documented in this encounter Additional Health Concerns Assessment Noted Time PHQ-9 Depression Total Score: 0 04/12/20 25 11:19 AM EDT documented as of this encounter Care Teams Station Helper Relationship Specialty Start Date End Date Donald Toth MD [address] [address] PCP - General Internal Medicine 10/13/18 documented as of this encounter
--- OUTSIDE RECORDS SUMMARY | 2025-11-14 16:31 | XMS_ITS | Data Portability ---
Author Organization [place] - [facility], Allergy Address [address] [address] Care Team Providers Care Manager Strategic Marketing Name Role Phone MANUEL CORNEJO Primary Care Provider Assessment Encounter Date Assessment Date Assessment LastModified by Organization Details LastModified Time 12/15/2024 12/15/2024 Patient describes headaches associated with right facial discomfort more in the summer months. Lately it has improved. She is suspicious there may be mold in her office building at the [employer]. Offered allergy skin testing. Nasal endoscopy today was benign with no signs of ongoing infection. Possibility of migraine was also considered although she cannot identify an obvious trigger [email or web address] Not available 12/15/2024 11:51:38 Plan of Treatment Reminders Order Date Submit Date Provider Last Modified By Organization Details Last Modified Time Details Appointments None recorded. Lab None recorded. Referral None recorded. Procedures allergy testing, skin prick (PROC) 2024 025 [email or web address] Not available 5 13:04:34 intraderma l allergy skin testing (PROC) 2024 025 [email or web address] Not available 5 13:04:34 pulmonary function test procedure (PROC) 2024 025 [email or web address] Not available 5 13:04:34 pulse oximetry (PROC) 2024 025 [email or web address] Not available 13:04:34 Surgeries None recorded. Imaging None recorded. Medication Orders None recorded. Patient TargetsNo targets recorded. Patient InstructionsNo instructions recorded. Reason for Referral None Reported. 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 Procedures Surgical History Date Name Laterality Status Provider Name and Address Organization Details Recorded Time 12/15/2024 NasalEndos copy_DP completed LINK GOLDBERG MD [address] [place] [address], [place], [address], [facility] 12/13/2024 16:59:38 Imaging Results None recorded. Procedure Notes None recorded. Medical Equipment None Reported. Medications Name Sig Start Date Stop Date Status Note LastModified by Organization Details LastModified Time cefuroxime axetil 500 mg tablet TAKE 1 TABLET BY MOUTH TWICE A DAY FOR 7 DAYS 12/15 completed Not Available Not Available Not Available mometasone 0.1 % topical cream APPLY TO AFFECTED AREA TWICE A DAY ON THE FACE FOR 7 DAYS 12/15 completed Not Available Not Available Not Available nitrofurant oin monohydrate /macrocryst als 100 mg capsule TAKE 1 CAPSULE BY MOUTH TWICE A DAY FOR 7 DAYS 12/15 completed Not Available Not Available Not Available Zyrtec active Not Available Not Availa ble Not Available Vitals Date Recorded Body height Body mass index (BMI) Body weight Provider Name and Address Organization Details Last Updated DateTime 12/15/2024 165.1 cm 23.3 kg/m2 85642.93 g Jed Apodaca [facility] 12/15/2024 11:19:37 Social History None recorded. Functional Status None recorded. Mental Status None recorded. Family History Nothing Reported. Medical History Condition Response Allergies/Hayfever Y Heart Problems N Anxiety N Tonsil Infections N Emphysema N Migraines N Thyroid Problems N Glaucoma N Depression N COPD N Developmental Delay N Nasal or Sinus Problems N Anemia N Immune System Disorder N Anesthesia Complications N Heart Attack (SC) N Other Skin Condition N Diabetes N Rhinitis N Bleeding Disorder N Food Allergy N Arthritis N Hearing Loss N Hyperlipidemia N Cancer N Stroke N Dementia N Nasal polyps N Asthma N Sleep Disorder N GERD/Reflux N High Cholesterol N Liver Disease N Headaches N Fibromyalgia N Hypertension N Speech Delay N Kidney Disease N Gynecological HistoryNo gynecological history recorded. 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 Recommend symptomati c management . Considerat ion of topical rinses (with a recipe of 1 cup warm water, 1 tsp kosher/sea salt, 1/2 tsp baking soda) as well as trial of a WaterPik may be helpful to remove debris. Please avoid rigid instrument s to dig into the tonsil surface as that may result in bleeding or scarring. Avoidance of alcohol based mouthwashe s and smoking is encouraged . I see no indication for antibiotic s at the present time. Given the risks of surgery to remove the tonsils, it would only be considered after maximal medical management was attempted. Allergic rhinitis 365502 04 J30.9 Health Concerns Section Related Observation LastModified by Organization Detai ls LastModified Time None Recorded Concern Status LastModified by Organization Details LastModified Time None Recorded Advance Directives Directive None Recorded Payers Insurance Date Sequence Insurance Name Policy Number Policy Coyne Covered Member ID Coyne Member ID Guarantor Name 01/19/2025 1 [employer] Caty Huitron [id number] Caty Huitron 02/07/2025 1 [facility] (O) [id number] Caty Huitron [id number] Caty Huitron 01/19/2025 1 [facility] PLAN (MEDICAID HMO) [id number] Caty Huitron [id number] Caty Huitron Notes Date Note Type Note Provider Name and Address Organization Details Recorded Time 12/15/2024 text/html ROS as noted in the HPI Right sided sinus painheadaches onset April 2024, associated with light headedpoor relief with tylenolsx have improvedwork 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
--- OUTSIDE RECORDS SUMMARY | 2025-11-14 16:32 | XMS_ITS | Encounter Summary ---
Author Organization [facility] Address [address] [place] [address] Care Team Providers Care Production Planning Manager Name Role Phone Donald Toth MD Primary Care Provider [phone] Encounter Details Date Type Department Care Team ([facility] st Contact Info) Description 09/15/2025 Results Follow-Up Endocrinology - [place] [address] [place] [address] Lizzette Moe MD [address] [place] [address] Social History Tobacco Use Types Packs/Day Years [...] care for your loved ones. For example, maternal child nurse or elderly care for an older adult? [...] 10:00 AM EDT Office Visit Endocrinology - [place] [address] [place] [address] Lizzette Moe MD [address] [place] [address] 10/24/2026 9:00 AM EST Office Visit Internal Medicine [place] [address] [address] Donald Toth MD [address] [address] documented as of this encounter Visit Diagnoses Not on filedocumented in this encounter Additional Health Concerns Assessment Noted Time PHQ-9 Depression Total Score: 0 04/12/20 25 11:19 AM EDT documented as of this encounter Care Teams Production Planning Manager Relationship Specialty Start Date End Date Donald Toth MD [address] [address] PCP - General Internal Medicine 10/13/18 documented as of this encounter
--- OUTSIDE RECORDS SUMMARY | 2025-11-14 16:32 | XMS_ITS | Clinical Summary ---
Author Organization [facility] Address [address] [place] [address] Phone Care Team Providers Care Stone Chimney Mason Name Role Phone Donald Toth MD Primary Care Provider [phone] Allergies Active Allergy Reactions Criticality Noted Date [...] at bedtime. 30 patch 5 5 Active Additional Information Patient not taking.Reported on 10/10/2025 cetirizine (ZyrTEC) 10 mg tablet Take 1 tablet (10 mg total) by mouth 1 (one) time each day. 30 tablet 2 5 Active dicyclomine (BENTYL) 20 mg tabletIndicatio ns:Abdominal cramps Take 1 tablet (20 mg total) by mouth 4 (four) times a day if needed (abdominal pain or cramps). 60 tablet 5 5 10/10/20 26 Active cholecalciferol (VITAMIN D-3) 50 mcg (2,000 unit) tabletIndicatio ns:Vitamin D deficiency Take 1 tablet (2,000 Units total) by mouth 1 (one) time each day. 90 tablet 3 5 10/21/20 26 Active Active Problems Problem Noted Date Diagnosed Date Hyperparathyroidism 09/15/2025 Encounters Date Type Department Care Team Description 10/21/2025 Results Follow-Up Internal Medicine - [place] 175 [facility] [address] [place] [address] Joaquín Arshad NP 10/20/2025 10:55 AM EST Lab Draw Station - 175 [facility] 175 [facility] [address] [place] [address] Screening for ischemic heart disease; Routine adult health maintenance; Screening for diabetes mellitus; Vitamin B12 deficiency; Vitamin D deficiency 10/10/2025 11:15 AM EST Office Visit Internal Medicine - [place] 175 [facility] [address] [place] [address] Joaquín Arshad NP Routine adult health maintenance (Primary Dx); Screening for ischemic heart disease; Screening for diabetes mellitus; Vitamin B12 deficiency; Abdominal cramps; Aching headache; Vitamin D deficiency 09/15/2025 9:00 AM EDT Office Visit Endocrinology - [address] [address] Lizzette Moe MD Hyperparathyroidism ([facility] V24) (Primary Dx) 09/15/2025 Results Follow-Up Endocrinology - [address] [address] Lizzette Moe MD from Last 3 Months Surgical History Surgery [...] care for your loved ones. For example, school child care attendant or elderly care for an older adult? [...] on file Sexual Orientation Not on file Last Filed Vital Signs Vital Sign Reading Time Taken Comments Blood Pressure 120/82 10/10/2025 11:23 AM EST Pulse 87 10/10/2025 11:23 AM EST Temperature 36.4 C (97.5 F) 10/10/2025 11:23 AM EST Respiratory Rate 12 09/15/2025 9:12 AM EDT Oxygen Saturation 98% 10/10/2025 11:23 AM EST Inhaled Oxygen Concentration - - Weight 60.9 kg (134 lb 3.2 oz) 10/10/2025 11:23 AM EST Height 165.1 cm (5' 5 ) 10/10/2025 11:23 AM EST Body Mass Index 22.33 10/10/2025 11:23 AM EST Plan of Treatment Upcoming Encounters Date Type Department Care Team (Late st Contact Info) Description 03/16/2026 10:00 AM EDT Office Visit Endocrinology - [place] [address] [place] [address] Lizzette Moe MD [address] [place] [address] 10/24/2026 9:00 AM EST Office Visit Internal Medicine - [place] 175 [facility] [address] [place] [address] Donald Toth MD 175 [facility] [address] [place] [address] Health Maintenance Due Date Last Done Comments Hepatitis A Vaccines (2 of 2 - 2-dose series) 08/27/2011 02/25/2011 HIV Screening 11/01/2022 Hepatitis C Screening 11/01/2022 COVID-19 Vaccine ( season) 2025 07/12/2021 Influenza Vaccine (#1) 2025 , 10/25/2014, 09/08/2013 Social Influencers of Health Screening 04/12/2026 04/12/2025 Cervical Cancer Screening: Pap Smear 08/09/2028 08/09/2025 Cholesterol Screening (Lipid Panel) 10/20/2030 10/20/2025 DTaP,Tdap,and Td Vaccines (8 - Td or Tdap) 03/12/2033 03/12/2023, 03/27/2005, 10/24/1996, Additional history exists RSV Immunization Adult Patients (1 - 1-dose 75+ series) 2067 HIB Vaccines Completed 10/24/1996, 12/1995, 04/29/1994, Additional [...] Procedure Name Priority Date/Time Associated Diagnosis Comments VITAMIN D 25 HYDROXY Routine 10/20/2025 10:52 AM EST Vitamin D deficiency VITAMIN B12 Routine 10/20/2025 10:52 AM EST Vitamin B12 deficiency MAGNESIUM Routine 10/20/2025 10:52 AM EST Routine adult health maintenance THYROID STIMULATING HORMONE WITH REFLEX TO FREE T4 AND FREE T3 Routine 10/20/2025 10:52 AM EST Routine adult health maintenance HEMOGLOBIN A1C Routine 10/20/2025 10:52 AM EST Screening for diabetes mellitus COMPLETE BLOOD COUNT Routine 10/20/2025 10:52 AM EST Routine adult health maintenance LIPID PANEL WITH REFLEX TO DIRECT LDL Routine 10/20/2025 10:52 AM EST Screening for ischemic heart disease PARATHYROID HORMONE INTACT Routine 09/15/2025 9:47 AM EDT Hyperparathyroidism ([facility] V24) COMPREHENSIVE METABOLIC PANEL Routine 09/15/2025 9:47 AM EDT Hyperparathyroidism ([facility] V24) VITAMIN D 25 HYDROXY Routine 09/15/2025 9:47 AM EDT Hyperparathyroidism ([facility] V24) PAP SMEAR Routine 08/09/2025 12:00 AM EDT Encounter for gynecological examination (general) (routine) without abnormal findings from Last 3 Months or Most Recently Relevant to Health Maintenance Results * Thyroid stimulating hormone with reflex to free t4 and free t3 (10/20/2025 10:52 AM EST) TSH 1.89 0.40 - 4.00 mcIU/mL 10/20/2025 2:06 PM [facility] Blood Venous blood specimen / Unknown Venipuncture / Unknown 10/20/2025 10:52 AM EST 10/20/2025 10:52 AM EST us Joaquín Jeancarlos SHOEMAKING CUTTER LAB BLOOD ORDERABLES Final Resul t [facility] [address] [place] [address], [place] [phone] * Lipid panel with reflex to direct LDL (10/20/2025 10:52 AM EST) Cholesterol 156 0 - 200 mg/dL 10/20/2025 2:07 PM [facility] Triglycerides 87 0 - 150 mg/dL 10/20/2025 2:07 PM [facility] HDL 59 >=40 mg/dL 10/20/2025 2:07 PM [facility] LDL Calculated 80 0 - 100 mg/dL 10/20/2025 2:07 PM [facility] Comment:Estimated LDL Calcul ated using equation: Total cholesterol - HDL cholesterol - (Triglycerides/5) VLDL Cholesterol Gagandeep 17.4 mg/dL 10/20/2025 2:07 PM [facility] Non HDL Chol. (LDL+VLDL) 97 <145 mg/dL 10/20/2025 2:07 PM [facility] Chol/HDL Ratio 2.6 0.0 - 4.4 10/20/2025 2:07 PM [facility] Blood Venous blood specimen / Unknown Venipuncture / Unknown 10/20/2025 10:52 AM EST 10/20/2025 10:52 AM EST us Joaquín Arshad [employer]OEMAKING CUTTER LAB BLOOD ORDERABLES Final Resul t Performing Organization Address City/[facility]/ZIP Co de Phone Number [facility] [address] [place] [address], [place] [phone] * (ABNORMAL) Vitamin D 25 hydroxy (10/20/2025 10:52 AM EST) Only the most recent of2 resultswithin the time period is included. [facility] Vit D, 25-Hydroxy 28.0(L) 30.0 - 80.0 ng/mL 10/20/2025 2:06 PM [facility] Blood Venous blood specimen / Unknown Venipuncture / Unknown 10/20/2025 10:52 AM EST 10/20/2025 10:52 AM EST Joaquín Arshad NP LAB BLOOD ORDERABLES Final Resul t [facility] [address] [place] [address], [place] [phone] * (ABNORMAL) Complete blood count (10/20/2025 10:52 AM EST) [facility] WBC 5.2 4.8 - 10.8 K/mcL LAB HEMETOLOGY METHOD 10/20/2025 2:04 PM [facility] RBC 4.40 3.80 - 4.80 M/mcL LAB HEMETOLOGY METHOD 10/20/2025 2:04 PM [facility] Hemoglobin 13.0 11.5 - 16.0 g/dL LAB HEMETOLOGY METHOD 10/20/2025 2:04 PM [facility] Hematocrit 38.3 35.0 - 47.0 % LAB HEMETOLOGY METHOD 10/20/2025 2:04 PM [facility] MCV 87.2 79.0 - 98.0 FL LAB HEMETOLOGY METHOD 10/20/2025 2:04 PM [facility] MCH 29.6 27.0 - 32.0 pcg LAB HEMETOLOGY METHOD 10/20/2025 2:04 PM [facility] MCHC 33.9 32.0 - 37.0 g/dL LAB HEMETOLOGY METHOD 10/20/2025 2:04 PM EST [facility] RDW 12.5 11.0 - 15.0 % LAB HEMETOLOGY METHOD 10/20/2025 2:04 PM [facility] Platelets 214 130 - 400 K/mcL LAB HEMETOLOGY METHOD 10/20/2025 2:04 PM [facility] MPV 11.6(H) 7.0 - 11.0 FL LAB HEMETOLOGY METHOD 10/20/2025 2:04 PM [facility] NRBC 0.0 <1.0 % LAB HEMETOLOGY METHOD 10/20/2025 2:04 PM [facility] NRBC Absolute 0.00 <0.10 K/mcL LAB HEMETOLOGY METHOD 10/20/2025 2:04 PM [facility] Blood Venous blood specimen / Unknown Venipuncture / Unknown 10/20/2025 10:52 AM EST 10/20/2025 10:52 AM EST us Joaquín Arshad NP LAB BLOOD ORDERABLES Final Resul t Performing Organization Address City/[facility] Co de Phone Number [facility] [address] [place] [address], * Magnesium (10/20/2025 10:52 AM EST) Magnesium 1.9 1.9 - 2.6 mg/dL 10/20/2025 2:06 PM EST [facility] Blood Venous blood specimen / Unknown Venipuncture / Unknown 10/20/2025 10:52 AM EST 10/20/2025 10:52 AM EST Joaquín Arshad NP LAB BLOOD ORDERABLES Final Resul t [facility] [address] [place] [address], [place] [phone] * Hemoglobin A1c (10/20/2025 10:52 AM EST) Hemoglobin A1C 4.8 <6.5 % LAB CHEMISTRY METHOD 10/20/2025 9:21 PM EST [facility] Mean Bld Glu Estim. 91 mg/dL LAB CHEMISTRY METHOD 10/20/2025 9:21 PM EST [facility] Blood Venous blood specimen / Unknown Venipuncture / Unknown 10/20/2025 10:52 AM EST 10/20/2025 10:52 AM EST Joaquín Arshad NP LAB BLOOD ORDERABLES Final Resul t Performing Organization Address [facility] Co de Phone Number [facility] [address] [place] [address], [place] [phone] * Vitamin B12 (10/20/2025 10:52 AM EST) Pathologist [facility] Vitamin B-12 615 211 - 911 pcg/mL 10/20/2025 2:07 PM EST [facility] Blood Venous blood specimen / Unknown Venipuncture / Unknown 10/20/2025 10:52 AM EST 10/20/2025 10:52 AM EST Joaquín Arshad NP LAB BLOOD ORDERABLES Final Resul t Performing Organization Address [facility]/ZIP Co de Phone Number [facility] [address] [place] [address], [place] [phone] * Parathyroid hormone intact (09/15/2025 9:47 AM EDT) Pathologist [facility] PTH 76.3 18.5 - 88.0 pcg/mL LAB CHEMISTRY METHOD 09/15/2025 2:51 PM EDT [facility] Blood Venous blood specimen / Unknown Venipuncture / Unknown 09/15/2025 9:47 AM EDT 09/15/2025 9:47 AM EDT Lizzette Moe MD LAB BLOOD ORDERABLES Final Result [facility] [address] [place] [address], * Comprehensive metabolic panel (09/15/2025 9:47 AM EDT) Sodium 139 133 - 145 mmol/L LAB CHEMISTRY METHOD 09/15/2025 2:10 PM [facility] Potassium 3.7 3.5 - 5.5 mmol/L LAB CHEMISTRY METHOD 09/15/2025 2:10 PM [facility] Chloride 105 96 - 110 mmol/L LAB CHEMISTRY METHOD 09/15/2025 2:10 PM [facility] CO2 25 21 - 32 mmol/L LAB CHEMISTRY METHOD 09/15/2025 2:10 PM [facility] Anion Gap 9 3 - 11 LAB CHEMISTRY METHOD 09/15/2025 2:10 PM [facility] Glucose 89 70 - 100 mg/dL LAB CHEMISTRY METHOD 09/15/2025 2:10 PM [facility] BUN 11 5 - 25 mg/dL LAB CHEMISTRY METHOD 09/15/2025 2:10 PM [facility] Creatinine 0.82 0.50 - 1.10 mg/dL LAB CHEMISTRY METHOD 09/15/2025 2:10 PM [facility] eGFR 98 >=60 mL/min/1. 73m2 LAB CHEMISTRY METHOD 09/15/2025 2:10 PM [facility] Comment:Calculation based on the Chronic Kidney Disease Epidemiology Collaboration (CKD-EPI) equation refit without adjustment for race. BUN/Creatinine Ratio 13.4 LAB CHEMISTRY METHOD 09/15/2025 2:10 PM EDT [facility] Calcium 9.3 8.5 - 10.5 mg/dL LAB CHEMISTRY METHOD 09/15/2025 2:10 PM EDT [facility] AST (SGOT) 13 10 - 42 unit/L LAB CHEMISTRY METHOD 09/15/2025 2:10 PM EDT [facility] ALT (SGPT) 20 10 - 60 unit/L LAB CHEMISTRY METHOD 09/15/2025 2:10 PM EDT [facility] Alkaline Phosphatase 55 42 - 121 unit/L LAB CHEMISTRY METHOD 09/15/2025 2:10 PM T [facility] Total Protein 7.9 6.0 - 8.0 g/dL LAB CHEMISTRY METHOD 09/15/2025 2:10 PM [facility] Albumin 4.4 3.2 - 5.0 g/dL LAB CHEMISTRY METHOD 09/15/2025 2:10 PM T [facility] Total Bilirubin 0.8 0.0 - 1.4 mg/dL LAB CHEMISTRY METHOD 09/15/2025 2:10 PM T [facility] Blood Venous blood specimen / Unknown Venipuncture / Unknown 09/15/2025 9:47 AM EDT 09/15/2025 9:47 AM EDT us Lizzette Moe MD LAB BLOOD ORDERABLES Final Result [facility] [address] [place] [address], * Pap smear (08/09/2025 12:00 AM EDT) Interpretation Negative for intraepithelial lesion or malignancy 08/19/2025 3:08 PM EDT [facility] at 1508 EDT Clinical Information 2023 ASCUS 08/19/2025 3:08 PM EDT [facility] General Categorization Negative 08/19/2025 3:08 PM EDT [facility] Other Findings Shift in edward suggestive of bacterial vaginosis 08/19/2025 3:08 PM EDT [facility] LMP 07/29/2025 08/19/2025 3:08 PM EDT [facility] Specimen Adequacy Satisfactory for evaluation, endocervical/lozoya sformation zone component absent 08/19/2025 3:08 PM EDT [facility] Pap Methodology Liquid Based Pap Test 08/19/2025 3:08 PM EDT [facility] Disclaimer The Pap test is a screening test which carries an inherent false negative rate. These test results should be correlated with the patient's clinical findings and history. This Pap test was processed using an automated screening system. Technical cytopathology services provided by [facility], at [address] [place] [address] (CLIA # [id number]/Fernanda Sandoval MD, Union Representative.) 08/19/2025 3:08 PM EDT [facility] Console Pap Interpretation Reported 08/19/2025 [facility] Brushing/Spatula Cervix uteri structure / Unknown 08/09/2025 08/10/2025 6:44 AM EDT us Kiet Cui MD LAB CYTOLOGY ORDERABLES Final Result [facility] [address] [place] [address], from Last 3 Months or Most Recently Relevant to Health Maintenance Insurance [facility] Care Teams Stone Chimney Mason Relationship Specialty Start Date End Date Donald Toth MD [address] [address] PCP - General Internal Medicine 10/13/18
--- OUTSIDE RECORDS SUMMARY | 2025-11-14 16:32 | XMS_ITS | Encounter Summary ---
Author Organization [employer] Address [address] [place] [address] Care Team Providers Care Floor Sanding Machine Operator Name Role Phone Donald Toth MD Primary Care Provider [phone] Encounter Details Date Type Department Care Team (Latest Contact Info) Description 08/10/2025 Lab Requisition [facility] 299 [facility] [place] [phone] Kiet Cui MD [address] [phone] Encounter for gynecological examination (general) (routine) without abnormal findings Social History Tobacco Use Types Packs/Day Years [...] care for your loved ones. For example, children's librarian or elderly care for an older adult? [...] 10:00 AM EDT Office Visit Endocrinology - [place] [address] [place] [address] Lizzette Moe MD [address] [place] [address] 10/24/2026 9:00 AM EST Office Visit Internal Medicine - [place] 175 [facility] [address] [place] [phone] Donald Toth MD 175 [facility] [address] [place] [address] documented as of this encounter Procedures Procedure Name Priority Date/Time Associated Diagnosis Comments PAP SMEAR Routine 08/09/2025 12:00 AM EDT Encounter for gynecological examination (general) (routine) without abnormal findings documented in this encounter Results * Pap smear (08/09/2025 12:00 AM EDT) Interpretation Negative for intraepithelial lesion or malignancy 08/19/2025 3:08 PM EDT [facility] at 1508 EDT Clinical Information 2023 ASCUS 08/19/2025 3:08 PM EDT [facility] General Categorization Negative 08/19/2025 3:08 PM EDT [facility] Other Findings Shift in edward suggestive of bacterial vaginosis 08/19/2025 3:08 PM EDT [facility] LMP 07/29/2025 08/19/2025 3:08 PM EDT [facility] Specimen Adequacy Satisfactory for evaluation, endocervical/lozoya sformation zone component absent 08/19/2025 3:08 PM EDT [facility] Pap Methodology Liquid Based Pap Test 08/19/2025 3:08 PM EDT [facility] Disclaimer The Pap test is a screening test which carries an inherent false negative rate. These test results should be correlated with the patient's clinical findings and history. This Pap test was processed using an automated screening system. Technical cytopathology services provided by [facility], at [address] [place] [address], [place] [address] (CLIA # [id number]/Fernanda Sandoval MD, [employer] R12 Developer.) 08/19/2025 3:08 PM EDT [facility] Console Pap Interpretation Reported 08/19/2025 3:08 PM EDT [facility] Brushing/Spatula Cervix uteri structure / Unknown 08/09/2025 08/10/2025 6:44 AM EDT us Kiet Cui MD LAB CYTOLOGY ORDERABLES Final Result Performing Organization Address City/State/[facility] Co de Phone Number [facility] [address] [place] [address], documented in this encounter Visit Diagnoses Diagnosis Encounter for gynecological examination (general) (routine) without abnormal findings documented in this encounter Additional Health Concerns Assessment Noted Time PHQ-9 Depression Total Score: 0 04/12/20 25 11:19 AM EDT documented as of this encounter Care Teams Floor Sanding Machine Operator Relationship Specialty Start Date End Date Donald Toth MD 175 [facility] [address] [place] [address] PCP - General Internal Medicine 10/13/18 documented as of this encounter
--- OUTSIDE RECORDS SUMMARY | 2025-11-14 16:32 | XMS_ITS | Encounter Summary ---
Author Organization [employer] Address [address] [place] [address] Care Team Providers Care Homeowner Association Manager Name Role Phone Donald Toth MD Primary Care Provider [phone] Encounter Details Date Type Department Care Team ([facility] Contact Info) Description 10/21/2025 Results Follow-Up Internal Medicine - [place] 175 [facility] [address] [place] [phone] Joaquín Arshad NP 175 [facility] [address] [place] [address] Social History Tobacco Use Types Packs/Day Years [...] care for your loved ones. For example, exceptional children's teacher or elderly care for an older adult? [...] on file documented as of this encounter Ordered Prescriptions Prescription Sig Dispense Quantity Refills Last Filled Start Date End Date cholecalciferol (VITAMIN D-3) 50 mcg (2,000 unit) tabletIndications: Vitamin D deficiency Take 1 tablet (2,000 Units total) by mouth 1 (one) time each day. 90 tablet 3 10/21/2025 10/21/2026 documented in this encounter Plan of Treatment Upcoming Encounters Date Type Department Care Team ([facility] st Contact Info) Description 03/16/2026 10:00 AM EDT Office Visit Endocrinology [place] [address] [place] [phone] Lizzette Moe MD [address] [place] [address] 10/24/2026 9:00 AM EST Office Visit Internal Medicine - [place] [address] [phone] Donald Toth MD [address] [address] documented as of this encounter Visit Diagnoses Diagnosis Vitamin D deficiency- Primary documented in this encounter Additional Health Concerns Assessment Noted Time PHQ-9 Depression Total Score: 0 04/12/20 25 11:19 AM EDT documented as of this encounter Care Teams Homeowner Association Manager Relationship Specialty Start Date End Date Donald Toth MD [address] [place] [address] PCP - General Internal Medicine 10/13/18 documented as of this encounter
== END 2025-11-14 15:57 | disposition home or self-care (01) ==
LOC: HO.HSM 15:22
PROVIDERS: PCP Internal Medicine; Visit Provider Psychiatry & Neurology Neurology
DX: R51.9 Headache, unspecified (principal); G50.9 Disorder of trigeminal nerve, unspecified
CPT/HCPCS: 99214

== ENCOUNTER → 2025-11-14 15:22 | Outpatient (BNVA) | payer OTHER, SELFPAY | PROVIDERS: PCP Internal Medicine; Visit Provider Psychiatry & Neurology Neurology | DX: G50.9 Disorder of trigeminal nerve, unspecified (principal); R51.9 Headache, unspecified | CPT/HCPCS: 99212 ==